=== PATIENT | male | born 1935 | race Caucasian/White ===

== ENCOUNTER 2018-08-16 17:12 | Observation (INO) | payer MEDICARE ==
[~2018-08-16] VITALS: Ht 177.8 cm; Wt 100.0 kg
[~2018-08-16 17:12] MED LIST: CELEXA20 MG PO; CEPHALEXIN500 MG PO; COUMADIN10 MG PO; EPLERENONE25 MG PO; LORTAB 5-325 MG1 TAB PO; LORTAB 5/3255 MG PO; LOSARTAN POT50 MG PO; LOVENOX SC; NEXIUM40 MG PO; TRAMADOL HCL50 MG PO; ZOFRAN ODT4 MG PO
--- NOTE | 2018-08-16 17:14 | NUR ---
TO ROOM 6 WITH STEADY GAIT
--- NOTE | 2018-08-16 17:30 | NUR ---
TO CT SCAN AND RETURN FOR STAT HEAD CT
--- NOTE | 2018-08-16 17:36 | NUR ---
PT ALERT/ORIENTED, STATES HEADACHE STARTED OUT SMALL AND THEN OVER A COUPLE OF HOURS BECAME SEVERE. [facility] A 0
--- NOTE | 2018-08-16 17:37 | NUR ---
ER INFORMED OF [facility]
[2018-08-16 17:45] LABS: HEMATOCRIT 44.2 % (39.0-50.0); HEMOGLOBIN 15.2 g/dl (14.0-18.0); IMMATURE GRANULOCYTES 0.4 % (0.0-5.0); MEAN CELL VOLUME 92.9 fL CALC (80.0-100.0); MEAN CORPUSCULAR HGB 31.9 pG CALC (26.0-32.0); MEAN CORPUSCULAR HGB CONC 34.4 g/L CALC (32.0-36.0); NEUT# 11.95 thou/uL (1.82-7.42); RED BLOOD COUNT 4.76 mill/uL (4.70-6.10); RED CELL DISTRI WIDTH 13.1 % (11.5-15.5)
[2018-08-16 17:55] LABS: INTERNATIONAL NORMALIZED RATIO 1.1 RATIO (0.7-1.3); PROTHROMBIN TIME 11.4 SECONDS (9.0-12.5)
[2018-08-16 17:57] LABS: ALBUMIN 4.3 g/dL (3.2-5.0); ALKALINE PHOSPHATASE 87 u/l (38-126); ANION GAP 15 (6-22 (CALC)); BILIRUBIN, TOTAL 0.9 mg/dL (0.0-1.4); BUN 16 mg/dL (8-23); BUN/CREATININE RATIO 14 (12-20 (CALC)); CARBON DIOXIDE 22 mmol/l (22-30); CHLORIDE 105 mmol/l (95-108); CREATININE 1.1 mg/dL (0.7-1.3); GFR > 60 ML/MIN (>=60 (CALC)); GFR FOR AFR.AMER. > 60 ML/MIN (>=60 (CALC)); SGOT/AST 20 u/l (19-48); SODIUM 138 mmol/l (137-146); TOTAL PROTEIN 6.9 g/dL (6.3-8.2)
--- NOTE | 2018-08-16 18:07 | NUR ---
VITAL SIGNS STABLE AT THIS TIME, B/P DOWN TO 146/89
[2018-08-16] MEDS ORDERED: ELIQUIS2.5 MG PO (18:12)
[2018-08-16] MEDS ORDERED: TRAZODONE50 MG PO (18:13)
--- NOTE | 2018-08-16 19:20 | NUR ---
PT REMAINS STABLE, HEADACHE IS DOWN TO A 4, LAUGHING AND JOKING WITH STAFF AT THIS TIME
--- NOTE | 2018-08-16 19:45 | NUR ---
WHEN I ASKED PT WHERE HIS PAIN WAS AT NOW HE KEPT PUSHING AT HIS LEFT SIDE JAW LINE ON ARTERY AND SAID THAT PAIN WENT UP INTO HEAD ALSO
--- NOTE | 2018-08-16 19:54 | NUR ---
PT DOWN TO CT SCAN FOR CAROTIDS
--- NOTE | 2018-08-16 21:19 | NUR ---
PT CALLED STAFF BACK INTO ROOM, STATES HEADACHE IS COMING BACK AROUND RIGHT [place] EAR AREA. BLOOD PRESSURE HAS GONE UP AGIAN, 200/102. [address] AND DR[address] RIVERA IS IN SPEAKING WITH PT AT THIS TIME
[2018-08-16 21:38] LABS: URINE BILIRUBIN - DIPSTICK NEGATIVE (NEGATIVE); URINE BLOOD DIPSTICK TRACE-LYSED (NEGATIVE); URINE COLOR YELLOW; URINE GLUCOSE - DIPSTICK NEGATIVE (NEGATIVE); URINE KETONE 15 mg/dL (NEGATIVE); URINE NITRITE - DIPSTICK NEGATIVE (Negative); URINE PROTEIN - DIPSTICK TRACE mg/dL (NEG-TRACE); URINE UROBILINOGEN - DIPSTICK 0.2 E.U./dL (0.2)
--- NOTE | 2018-08-16 21:39 | NUR ---
PER DR. RIVERA GAVE 10 MG HYDRALAZINE AND IF BLOOD PRESSURE DOESNT COME DOWN TO GIVE THE OTHER 10 MG.
[2018-08-16 21:51] LABS: URINE LEUK ESTERASE SMALL (NEGATIVE)
[2018-08-16 21:52] LABS: URINE BACTERIA FEW hpf; URINE WBC 20-50 WBC/hpf (0-5)
--- NOTE | 2018-08-16 22:05 | NUR ---
TOOK OVER CARE OF PT FROM SALIMA HERNANDEZ.
--- NOTE | 2018-08-16 22:22 | NUR ---
PT TO BE ADMITTED.
--- NOTE | 2018-08-16 22:40 | NUR ---
MEDICATED WITH NORVASC AND ROCEPHIN, NOTICED B/Y EYES RED AND PUS NOTED TO LEFT EYE-DR RIVERA INFORMED.
--- NOTE | 2018-08-16 23:27 | NUR ---
REPORT GIVEN TO SALIMA SELF.
--- NOTE | 2018-08-16 23:35 | NUR ---
MEDICATED PT WITH TORADOL FOR PAIN PRIOR TO TRANSPORTING TO FLOOR. UP DATED REPORT GIVEN TO SALIMA SELF. REMINED DR RIVERA ABOUT CONJUNTIVITIS AND MEDICATION ORDER PLACED. Admission Note Report Given to: SALIMA SELF Transported by: X Wheelchair Stretcher Transported with: X Nurse Transporter X Patent IV O2 X Chief Fundraising Officer
[2018-08-16 23:45] VITALS: BP 143/77
--- NOTE | 2018-08-16 23:50 | NUR ---
pt arrived to unit at 2343 via wneelchair accompanied with . pt alert oriented. perrla. denies pain at the monemt. lungs clear. pulses strong and present. hand grasps equal and strong. abdomen firm and distended. last bm 08/16/18 in morning. iv in left AC. patent with no sign of infection.pt denies recent fall. skin assessment complete. min bruises noted to right shoulder.no open area. pt wears glasses and a hearing aid in righ tear. poc discussed. pt voiced understanding.call light in reach. bed in lowest position. pt educated to call for assistance when needing to go to restroom. Gentamycin intiated for conjunctivis. no other concerns at this time will monitor.
[2018-08-17 04:00] VITALS: BP 138/83
--- NOTE | 2018-08-17 04:00 | NUR ---
PT RESTING IN BED WITH EYES OPEM. NO C/O PAIN. PT CONCERNED ABOUT PRESCRIBED EYE OINTMENT. CHARGE NURSE MADE AWARE THAT MED NOT IN PIXIS. EXPLAINED TO PT THAT IF MED ISNT AVALIBLE. WE WILL HAVE TO WAIT UNTIL PHARMACY OPEND IN THE MORNING. PT VOICED UNDERSTANDING. EDUCATED PT NOT TO RUBB EYES TO PREVENT FROM SPREADING INFECTION. PT VOICED UNDERSTAND. BED IN LOWEST POSITION AND CALL LIGHT WITHIN REACH. WILL CONTINUE TO MONITOR.
--- NOTE | 2018-08-17 04:51 | NUR ---
ADMINISTERED GENTAMYCIN BILAT TO EYES. IV PATENT. NO PAIN. NO S/S OF DISTRESS. BED IN LOWEST POSITON. WILL MONITOR.
--- NOTE | 2018-08-17 07:17 | NUR ---
REPORT RECEIVED FROM NIGHT NURSE; PT APPEARS TO BE SLEEPING, RESP EVEN AND UNLABORED; CALL KRAUS IN REACH.
[2018-08-17 08:06] VITALS: BP 138/76
--- NOTE | 2018-08-17 08:16 | NUR ---
ASSESSMENT COMPLETED; SITTING UP IN BED WATCHING TV; A/O X3; AM MEDS ADMINISTERED; PULSES STRONG; ABD FIRM DISTENDED; SKIN INTACT; TELE IN PLACE; IV PATENT; HEARING AID IN R EAR; AT BEDSIDE; CALL KRAUS IN REACH.
[2018-08-17 11:00] VITALS: BP 157/94
--- NOTE | 2018-08-17 12:00 | NUR ---
PT SITTING UP IN BED WATCHING TV AND EATING LUNCH; RESP EVEN AND UNLABORED; WANTING TO KNOW WHEN HE WILL BE D/C.
[2018-08-17 14:33] LABS: HEMATOCRIT 45.5 % (39.0-50.0); HEMOGLOBIN 15.4 g/dl (14.0-18.0); IMMATURE GRANULOCYTES 0.6 % (0.0-5.0); MEAN CELL VOLUME 94.2 fL CALC (80.0-100.0); MEAN CORPUSCULAR HGB 31.9 pG CALC (26.0-32.0); MEAN CORPUSCULAR HGB CONC 33.8 g/L CALC (32.0-36.0); NEUT# 10.11 thou/uL (1.82-7.42); RED BLOOD COUNT 4.83 mill/uL (4.70-6.10); RED CELL DISTRI WIDTH 13.2 % (11.5-15.5)
[2018-08-17] MEDS ORDERED: Levaquin PO (15:12)
--- NOTE | 2018-08-17 16:10 | NUR ---
DC INSTRUCTIONS GIVEN TO PT ALONG WITH EYE DROP; PT VERBALIZED UNDERSTANDING; IVS REMOVED, CATH TIP INTAC; TELE REMOVED; PT INSTRUCTED TO CALL WHEN HIS RIDE GETS HERE;
--- NOTE | 2018-08-17 16:40 | NUR ---
Discharge instructions given. Patient verbalizes understanding of same. Discharged in stable condition via Wheelchair to Home with spouse. All belongings sent with pt.
== END 2018-08-17 16:40 | disposition home or self-care (01) ==
LOC: ED 17:12 → ED-I 22:19 → ED 22:24 → MS2 22:25
PROVIDERS: Emergency Medicine; Internal Medicine Nephrology; ADMIT Internal Medicine; ATTEND Internal Medicine
DX: I10 Essential (primary) hypertension (principal); D72.829 Elevated white blood cell count, unspecified; R05 Cough; K21.9 Gastro-esophageal reflux disease without esophagitis; N40.0 Benign prostatic hyperplasia without lower urinary tract symptoms; F41.9 Anxiety disorder, unspecified; M47.9 Spondylosis, unspecified; Z79.01 Long term (current) use of anticoagulants; Z86.711 Personal history of pulmonary embolism; R51 Headache; H92.02 Otalgia, left ear
CPT/HCPCS: G0378; Q9967

== ENCOUNTER 2021-08-23 11:08 | Emergency (ER) | payer MEDICARE ==
[~2021-08-23] VITALS: Ht 165.1 cm; Wt 90.9 kg
[~2021-08-23 11:08] MED LIST changes: +ELIQUIS2.5 MG PO; +Levaquin PO; +TRAZODONE50 MG PO
[2021-08-23] MEDS ORDERED: ATORVASTATIN CA40 MG PO (12:09)
[2021-08-23] MEDS ORDERED: NEXIUM40 M1 PO (12:10)
[2021-08-23] MEDS ORDERED: LISINOPRIL5 MG PO (12:10)
[2021-08-23] MEDS ORDERED: LIPO-FLAVONOID PO (12:12)
[2021-08-23] MEDS ORDERED: VITAMIN C500 M6 PO (12:12)
[2021-08-23] MEDS ORDERED: CLOPIDOGREL75 MG PO (12:13)
[2021-08-23] MEDS ORDERED: REMERON15 MG PO (12:13)
[2021-08-23 12:14] LABS: HEMATOCRIT 45.6 % (39.0-50.0); HEMOGLOBIN 14.3 g/dl (14.0-18.0); IMMATURE GRANULOCYTES 0.5 % (0.0-5.0); MEAN CELL VOLUME 91.2 fL CALC (80.0-100.0); MEAN CORPUSCULAR HGB 28.6 pG CALC (26.0-32.0); MEAN CORPUSCULAR HGB CONC 31.4 g/dL CAL (32.0-36.0); NEUT# 4.65 thou/uL (1.82-7.42)
[2021-08-23 12:16] LABS: URINE BLOOD DIPSTICK LARGE (NEGATIVE); URINE COLOR BROWN; URINE GLUCOSE - DIPSTICK 100 mg/dL (NEGATIVE); URINE KETONE 15 mg/dL (NEGATIVE); URINE PROTEIN - DIPSTICK >=300 mg/dL (NEG-TRACE)
[2021-08-23 12:18] LABS: URINE BILIRUBIN - DIPSTICK NEGATIVE (NEGATIVE); URINE LEUK ESTERASE MODERATE (NEGATIVE); URINE NITRITE - DIPSTICK POSITIVE (Negative)
[2021-08-23 12:20] LABS: URINE RBC TNTC RBC/hpf (0-5)
[2021-08-23 12:35] LABS: ALBUMIN 4.4 g/dL (3.2-5.0); ALKALINE PHOSPHATASE 136 u/l (38-126); ANION GAP 14 (6-22 (CALC)); BILIRUBIN, TOTAL 0.5 mg/dL (0.0-1.4); BUN 20 mg/dL (8-23); BUN/CREATININE RATIO 18 (12-20 (CALC)); CARBON DIOXIDE 26 mmol/l (22-30); CHLORIDE 105 mmol/l (95-108); CREATININE 1.1 mg/dL (0.7-1.3); GFR > 60 ML/MIN (>=60 (CALC)); GFR FOR AFR.AMER. > 60 ML/MIN (>=60 (CALC)); POTASSIUM 4.6 mmol/l (3.5-5.1); SGOT/AST 25 u/l (19-48); SODIUM 140 mmol/l (137-146); TOTAL PROTEIN 7.4 g/dL (6.3-8.2)
[2021-08-23 12:39] LABS: ACT PARTIAL THROMBO TIME 25.2 SECONDS (20.0-32.5); PROTHROMBIN TIME 10.8 SECONDS (9.0-12.5)
[2021-08-23] MEDS ORDERED: KEFLEX500 MG PO (13:11)
[2021-08-23] MEDS ORDERED: TAMSULOSIN0.4 MG PO (13:11)
[2021-08-23] MEDS ORDERED: ZOFRAN4 MG/TAB PO (13:11)
[2021-08-23] MEDS ORDERED: HYDROCO/APAP1 TA9 PO (13:11)
[2021-08-23 13:55] VITALS: BP 138/85
== END 2021-08-23 14:00 | disposition home or self-care (01) ==
LOC: ED 11:08
DX: N20.1 Calculus of ureter (principal); N39.0 Urinary tract infection, site not specified; I11.0 Hypertensive heart disease with heart failure; I50.9 Heart failure, unspecified; F17.220 Nicotine dependence, chewing tobacco, uncomplicated; Z95.0 Presence of cardiac pacemaker; Z95.2 Presence of prosthetic heart valve

== ENCOUNTER 2021-09-27 12:50 | Observation (INO) | payer MEDICARE ==
[~2021-09-27] VITALS: Ht 165.1 cm; Wt 86.7 kg
[2021-09-27] VITALS (25 sets, daily range): BP systolic 69–134; BP diastolic 49–84
[~2021-09-27 12:50] MED LIST changes: +ATORVASTATIN CA40 MG PO; +CLOPIDOGREL75 MG PO; +HYDROCO/APAP1 TA9 PO; +KEFLEX500 MG PO; +LIPO-FLAVONOID PO; +LISINOPRIL5 MG PO; +NEXIUM40 M1 PO; +REMERON15 MG PO; +TAMSULOSIN0.4 MG PO; +VITAMIN C500 M6 PO; +ZOFRAN4 MG/TAB PO
--- NOTE | 2021-09-27 12:53 | NUR ---
PATIENT TO ROOM VIA WHEELCHIAR.
[2021-09-27 13:52] LABS: HEMATOCRIT 42.2 % (39.0-50.0); HEMOGLOBIN 13.2 g/dl (14.0-18.0); IMMATURE GRANULOCYTES 0.7 % (0.0-5.0); MEAN CELL VOLUME 90.6 fL CALC (80.0-100.0); MEAN CORPUSCULAR HGB 28.3 pG CALC (26.0-32.0); MEAN CORPUSCULAR HGB CONC 31.3 g/dL CAL (32.0-36.0); NEUT# 6.76 thou/uL (1.82-7.42); RED BLOOD COUNT 4.66 mill/uL (4.70-6.10); RED CELL DISTRI WIDTH 14.3 % (11.5-15.5)
[2021-09-27 14:10] LABS: URINE BILIRUBIN - DIPSTICK NEGATIVE (NEGATIVE); URINE BLOOD DIPSTICK LARGE (NEGATIVE); URINE GLUCOSE - DIPSTICK NEGATIVE (NEGATIVE); URINE KETONE NEGATIVE (NEGATIVE); URINE LEUK ESTERASE NEGATIVE (NEGATIVE); URINE PROTEIN - DIPSTICK >=300 mg/dL (NEG-TRACE); URINE SPECIFIC GRAVITY 1.025; URINE UROBILINOGEN - DIPSTICK 0.2 E.U./dL (0.2)
[2021-09-27 14:11] LABS: URINE COLOR RED; URINE NITRITE - DIPSTICK NEGATIVE (Negative)
[2021-09-27 14:13] LABS: ACT PARTIAL THROMBO TIME 24.7 SECONDS (20.0-32.5); PROTHROMBIN TIME 10.8 SECONDS (9.0-12.5)
[2021-09-27 14:13] LABS: URINE RBC TNTC RBC/hpf (0-5)
[2021-09-27 14:15] LABS: ALKALINE PHOSPHATASE 128 u/l (38-126); ANION GAP 13 (6-22 (CALC)); BILIRUBIN, TOTAL 0.6 mg/dL (0.0-1.4); BUN 24 mg/dL (8-23); BUN/CREATININE RATIO 21 (12-20 (CALC)); CARBON DIOXIDE 21 mmol/l (22-30); CHLORIDE 110 mmol/l (95-108); CREATININE 1.1 mg/dL (0.7-1.3); GFR > 60 ML/MIN (>=60 (CALC)); GFR FOR AFR.AMER. > 60 ML/MIN (>=60 (CALC)); POTASSIUM 4.4 mmol/l (3.5-5.1); SGOT/AST 26 u/l (19-48); SODIUM 139 mmol/l (137-146); TOTAL PROTEIN 7.2 g/dL (6.3-8.2)
[2021-09-27] MEDS ORDERED: TAMSULOSIN0.4 MG PO (15:01)
[2021-09-27] MEDS ORDERED: CENTRUM SILVER PO (15:02)
[2021-09-27] MEDS ORDERED: ASPIRIN81 MG PO (15:03)
[2021-09-27] MEDS ORDERED: METOPROL TAR25 M1 PO (15:03)
--- NOTE | 2021-09-27 15:04 | NUR ---
3,000 URINE, BLOODY, OUTPUT THROUGH SHEARER.
--- NOTE | 2021-09-27 16:17 | NUR ---
3000 NS CBI INTAKE 5000 CBI OUT
[2021-09-27 16:29] LABS: HEMOGLOBIN 13.2 g/dl (14.0-18.0); IMMATURE GRANULOCYTES 0.3 % (0.0-5.0); MEAN CELL VOLUME 91.7 fL CALC (80.0-100.0); MEAN CORPUSCULAR HGB 28.8 pG CALC (26.0-32.0); MEAN CORPUSCULAR HGB CONC 31.4 g/dL CAL (32.0-36.0); NEUT# 6.68 thou/uL (1.82-7.42); RED BLOOD COUNT 4.58 mill/uL (4.70-6.10); RED CELL DISTRI WIDTH 14.3 % (11.5-15.5)
--- NOTE | 2021-09-27 17:07 | NUR ---
REPORT CALLED TO KAE
--- NOTE | 2021-09-27 18:15 | NUR ---
REPORT RECEIVED FROM BOBBY IN ED, PT ARRIVED ON UNIT @ 1744 TRANSPORTED VIA STRETCHER AND SETTLED IN BED. ALERT AND ORIENTED X 4, ORIENTED TO ROOM AND CALL KRAUS, DENIES PAIN BUT C/O PRESSURE TO LOWER ABD, CBI IN PROGRESS AT THIS TIME WITH BRIGHT RED BLOODY DRAINAGE, VITAL SIGNS MEASURED AND RECORDED, WILL CONTINUE TO MONITOR.
--- NOTE | 2021-09-27 19:00 | NUR ---
PT C/O SHARP INTERMITTENT PAIN TO PENILE AREA, ORDERS NOT YET COMPLETED FOR ANALGESIC, WILL CONTINUE TO MONITOR. ON ARRIVAL TO UNIT CBI DRAINING BRIGHT RED BLOOD, CLAMPS OPENED WIDE UNTIL FLOW BECAME EDWARD RED TO LIGHT EDWARD, NIGHT RN WILL CONTINUE ASSESSMENT.
--- NOTE | 2021-09-27 22:00 | NUR ---
RESTING IN BED. A/O X 4 [place]. RESPIRATIONS EVEN AND UNLABORED, LUNGS CLEAR. BS ACTIVE BELLY SOFT AND ROUND. NO BLE NAE ANOTED. SHEARER DRAINING EDWARD COLOR URINE AND NS TO GRAVITY CBI RUNNING AT FULL OPEN RATE. MEDICATED FOR PAIN PER AUG. PIV X 2 WDL. BED LOW AND LOCKED CALL KRAUS IN REACH SIDE RAILS UP.
--- NOTE | 2021-09-27 22:00 | NUR ---
CLOTS NOTED IN SHEARER TUBING, MANUAL IRRIGATION PER ORDER PROFUSE CLOTS REMOVED, UNABLE TO GET URINE TO RUN CLEAR. CBI INFUSING AT MAX RATE COLOR IS STILL EDWARD
[2021-09-28] VITALS (7 sets, daily range): BP systolic 90–138; BP diastolic 54–69
--- NOTE | 2021-09-28 00:12 | NUR ---
RESTING IN BED. SYSTOLIC BP IN THE LOW 90S PT ASYMTOMATIC. CBI RUNNING URINE EDWARD COLOR OCCASIONAL CLOT NOTED. NO C/O PAIN AT THIS TIME.
--- NOTE | 2021-09-28 01:21 | NUR ---
pt c/o pain clots noted in beavers tubing. rrigated by hand per order drainage noted to be grossly bloody with abundance of clots
--- NOTE | 2021-09-28 02:46 | NUR ---
MANUAL IRRIGATION OF SHEARER PERFORMED PER ORDER LESS CLOTTING NOTED THIS TIME
--- NOTE | 2021-09-28 03:39 | NUR ---
VSS OVERNIGHT. URINE CONTINUES TO BE BLOODY. CBI INFUSING. MEDICATED FOR PAIN PER MAR.
[2021-09-28 04:58] LABS: MEAN CELL VOLUME 91.8 fL CALC (80.0-100.0); MEAN CORPUSCULAR HGB 28.8 pG CALC (26.0-32.0); MEAN CORPUSCULAR HGB CONC 31.4 g/dL CAL (32.0-36.0); RED BLOOD COUNT 3.68 mill/uL (4.70-6.10); RED CELL DISTRI WIDTH 14.1 % (11.5-15.5)
[2021-09-28 05:03] LABS: HEMATOCRIT 33.8 % (39.0-50.0); HEMOGLOBIN 10.6 g/dl (14.0-18.0)
[2021-09-28 05:23] LABS: ANION GAP 10 (6-22 (CALC)); BUN 28 mg/dL (8-23); BUN/CREATININE RATIO 22 (12-20 (CALC)); CARBON DIOXIDE 24 mmol/l (22-30); CHLORIDE 110 mmol/l (95-108); CREATININE 1.3 mg/dL (0.7-1.3); GFR 53 ML/MIN (>=60 (CALC)); GFR FOR AFR.AMER. > 60 ML/MIN (>=60 (CALC)); MAGNESIUM 1.8 mg/dL (1.6-2.3); POTASSIUM 4.3 mmol/l (3.5-5.1); SODIUM 139 mmol/l (137-146)
--- NOTE | 2021-09-28 07:10 | NUR ---
SHIFT CHANGE REPORT, PT SLEEPING AT THIS TIME, BREATHING EVEN AND NON-LABORED, TELE MOITOR IN PLACE, CBI INPROGRESS WITH EDWARD RED OUTPUT IN BAG BUT LIGHT PINK IN CATHETER, WILL CONTINUE TO MONITOR.
--- NOTE | 2021-09-28 10:29 | NUR ---
DR VELASQUEZ ROUNDED, DISCUSSED PLAN OR CARE, PT ABLE TO ANSWER ALL/MOST OF THE QUESTIONS ASKED ABOUT SURGICAL HISTORY, PLAN IS TO CONTINUE CBI AND MANUALLY IRRIGATE FOR CLOTS PRN THEN IF CONDITION REMAINS STABLE WITH H&H AND DECREASE BLEEDING PT WILL BE D/C TO FOLLOW UP WITH DR GUERIN, PT STATED UNDERSTANDING OF ALL THAT WAS DISCUSSED, WILL CONTINUE TO MONITOR.
--- NOTE | 2021-09-28 12:11 | NUR ---
ALL NEEDS ADDRESSED, SPOUSE IN ROOM AT THIS TIME. PT REFUSES OUR MEAL HERE STATING HE DOES NOT EAT ANY POULTRY PRODUCTS, DIETARY WILL BE CONTACTED TO ADDRESS CONCERNS
--- NOTE | 2021-09-28 15:11 | NUR ---
NO C/O PAIN TODAY, CBI IN PROGRESS AND OUTPUT GETTING CLEARER, NO VISIBLE CLOTS SEEN SO FAR TODAY, FREQUENT MONITORING CONTINUES.
--- NOTE | 2021-09-28 18:40 | NUR ---
PT C/O SEVERE PELVIC/GROIN PAIN, ON ASSESSMENT OF CBI CATHETER THERE WAS FREE LIGHT PINK FLOW, PT REQUESTED TO BE IRRIGATED, MULTIPLE CLOTS OF VARYING SIZES WERE EXTRACTED THEN DISCOMFORT WAS TOTALLY RELIEVED, NIGHT NURSE INFORMED OF EVENT AND WILL FOLLOW UP.
--- NOTE | 2021-09-28 19:45 | NUR ---
RESTING IN BED. VSS. A/O VERY SLEEPY TODAY STATES HAS NOT SLEPT TODDAY AND DID NOT SLEEP LAST NIGHT. RESPIRATIONS EVEN AND UNLABORED LUNGS CLEAR. BS ACTIVE, BELLY DISTENDED BUT SOFT. SHEARER DRAINING PINK URINE TO GRAVITY. CBI INFUSING. NO BLE NAE ANOTED. PIV WDL BED LOW AND LOCKED CALL KRAUS IN REACH
--- NOTE | 2021-09-29 00:34 | NUR ---
RESTING IN BED VSS. URINE LIGHT PINK
[2021-09-29 03:57] VITALS: BP 110/57
--- NOTE | 2021-09-29 04:39 | NUR ---
NO ACUTE EVENTS OVERNIGHT. URINE CONTINUES TO RUN VERY LIGHT PINK CBI INFUSING AT SLOW DRIP
[2021-09-29 05:49] LABS: HEMATOCRIT 33.2 % (39.0-50.0); HEMOGLOBIN 10.3 g/dl (14.0-18.0); MEAN CELL VOLUME 92.5 fL CALC (80.0-100.0); MEAN CORPUSCULAR HGB 28.7 pG CALC (26.0-32.0); RED BLOOD COUNT 3.59 mill/uL (4.70-6.10); RED CELL DISTRI WIDTH 14.4 % (11.5-15.5)
[2021-09-29 06:05] LABS: ANION GAP 8 (6-22 (CALC)); BUN 23 mg/dL (8-23); BUN/CREATININE RATIO 22 (12-20 (CALC)); CARBON DIOXIDE 27 mmol/l (22-30); CHLORIDE 108 mmol/l (95-108); CREATININE 1.1 mg/dL (0.7-1.3); GFR > 60 ML/MIN (>=60 (CALC)); GFR FOR AFR.AMER. > 60 ML/MIN (>=60 (CALC)); MAGNESIUM 1.6 mg/dL (1.6-2.3); POTASSIUM 4.5 mmol/l (3.5-5.1); SODIUM 139 mmol/l (137-146)
--- NOTE | 2021-09-29 07:11 | NUR ---
SHIFT CHANGE REPORT, PT SLEEPING AT THIS TIME, NO SIGN DISCOMFORT, TELE MONITOR IN PLACE, CBI IN PROGRESS WITH LIGHT PINK DRAINAGE, CALL KRAUS IN REACH AND BED LOCKED IN LOWEST POSITION
[2021-09-29 07:30] VITALS: BP 140/61
--- NOTE | 2021-09-29 07:34 | NUR ---
AWAKE AND ALERT AT THIS TIME, DENIES PAIN, NEEDS ADDRESSED.
[2021-09-29 10:18] VITALS: BP 128/71
--- NOTE | 2021-09-29 11:43 | NUR ---
PT AMBULATED TO BR THEN BACK TO BED, C/O SEVERE SHARP PAINS TO PUBIC AREA, CATHETER MANUALLY IRRIGATED AND CLOTS OF MULTIPLE SIZES WERE EVACUATED, PT THEN REPORTED COMPLETE RELIEF FROM HIS EXCRUATING PAIN AND DID NOT WANT TO HAVE ANY ANALGESICS HE HAD PREVIOUSLY REQUESTED DURING HIS PAINFUL EPISODE; WILL CONTINUE TO MONITOR.
--- NOTE | 2021-09-29 15:37 | NUR ---
PT AMBULATED TO BR AGAIN FOR SECOND TIME TODAY, C/O EXCRUCIATING PELVIC PAIN AGAIN, BLADDER MANUALLY IRRIGATED AND MANY CLOTS EVACUATED, PAIN RELIEVED, WILL CONTINUE TO MONITOR.
[2021-09-29 15:53] VITALS: BP 124/66
--- NOTE | 2021-09-29 19:00 | NUR ---
REPORT GIVEN BY EDGAR. PATIENT RESTING IN BED WATCHING TV. RESP EVEN AND UNLABORED. NO S/S OF DISTRESS NOTED. FALL AND SAFTEY PRECAUTIONS IN PLACE. IV SLAINE LOCKED. CBI CURRENTLY RUNNING AND DRAINING TO GRAVITY. PLAN OF CARE DISCUSSED. PATIENT INFORMED TO CALL WITH ANY QUESTIONS OR CONCERNS. PACED ON TELE.
[2021-09-29 19:07] VITALS: BP 129/60
[2021-09-29 23:41] VITALS: BP 127/70
[2021-09-30] VITALS (12 sets, daily range): BP systolic 103–151; BP diastolic 57–75
--- NOTE | 2021-09-30 00:45 | NUR ---
CBI RUNNING WITH PEACH COLORED DRAINAGE AND NO CLOTS PRESENT. FALL AND SAFTEY PRECAUTIONS IN PLACE. NO S/S OF DISTRESS NOTED.
--- NOTE | 2021-09-30 04:43 | NUR ---
PATIENT RESTING WITH EYES CLOSED. FALL AND SAFTEY PRECAUTIONS
[2021-09-30 05:45] LABS: HEMATOCRIT 34.1 % (39.0-50.0); HEMOGLOBIN 11.2 g/dl (14.0-18.0); MEAN CELL VOLUME 91.2 fL CALC (80.0-100.0); MEAN CORPUSCULAR HGB 29.9 pG CALC (26.0-32.0); MEAN CORPUSCULAR HGB CONC 32.8 g/dL CAL (32.0-36.0); RED BLOOD COUNT 3.74 mill/uL (4.70-6.10); RED CELL DISTRI WIDTH 14.2 % (11.5-15.5)
[2021-09-30 06:20] LABS: ANION GAP 10 (6-22 (CALC)); BUN 19 mg/dL (8-23); BUN/CREATININE RATIO 18 (12-20 (CALC)); CARBON DIOXIDE 24 mmol/l (22-30); CHLORIDE 106 mmol/l (95-108); GFR > 60 ML/MIN (>=60 (CALC)); GFR FOR AFR.AMER. > 60 ML/MIN (>=60 (CALC)); POTASSIUM 4.6 mmol/l (3.5-5.1); SODIUM 136 mmol/l (137-146)
--- NOTE | 2021-09-30 07:51 | NUR ---
PT ANXIOUS ABOUT PROCEDURE. OR CONTACTED. STATES NO OPAIN AT THIS TIME. IV 22G RH FLUSHED, 20G LW FLUSHED. TELE MONITOR IN PLACE, CONTINOUS MONITORING PER ED. CBI IN PLACE SHOWING PALE YELLOW URINE. PT HAS BEEN NPO SINCE MIDNIGHT. ASSESSMENT ALLOWED FALL/SAFTEY PRECAUTION IN PLACE. CALL LIGHT WITHIN REACH.
--- NOTE | 2021-09-30 11:56 | NUR ---
PT RESTING IN BED. SHEARER CBI DRAINING VIA GRAVITY. PT STATES NO PAIN. TELE MONITOR IN PLACE, CONTINOUS MONIOTIRNG PER ED. IVS PATENT. FALL/SAFETY PRECAUTION IN PLACE. CALL LIGHT WITHIN REACH.
--- NOTE | 2021-09-30 16:41 | NUR ---
PT TRANSPORTED TO OR WITH SALIMA COY AND RN VIA STRETCHER WITH CBI BAGS DRAINING VIA GRAVITY.
--- NOTE | 2021-09-30 18:00 | NUR ---
PT IN OR AT THIS TIME
--- NOTE | 2021-09-30 18:38 | NUR ---
PT ARRIVED VIA STRETCHER FROM OR
--- NOTE | 2021-09-30 19:30 | NUR ---
REPORT GIVEN BY NASH. PATIENT RESTING IN BED WATCHING TV WITH PRESENT. RESP EVEN AND UNLABORED. NO S/S OF DISTRESS NOTED. FALL AND SAFTEY PRECAUTIONS IN PLACE. IV SALINE LOCKED. PACED ON TELE. PLAN OF CARE DISCUSSED. PATIENT INFORMED TO CALL WITH ANY QUESTIONS OR CONCERNS. SHEARER DRAINING TO GRAVITY, CLEAR PALE YELLOW URINE.
--- NOTE | 2021-10-01 01:25 | NUR ---
patient has c/o of constipation. medicated per md orders
[2021-10-01 03:33] VITALS: BP 123/64
[2021-10-01 05:52] LABS: HEMATOCRIT 33.6 % (39.0-50.0); HEMOGLOBIN 10.7 g/dl (14.0-18.0); MEAN CELL VOLUME 90.6 fL CALC (80.0-100.0); MEAN CORPUSCULAR HGB 28.8 pG CALC (26.0-32.0); MEAN CORPUSCULAR HGB CONC 31.8 g/dL CAL (32.0-36.0); RED BLOOD COUNT 3.71 mill/uL (4.70-6.10); RED CELL DISTRI WIDTH 14.3 % (11.5-15.5)
[2021-10-01 06:17] LABS: ANION GAP 10 (6-22 (CALC)); BUN 19 mg/dL (8-23); BUN/CREATININE RATIO 17 (12-20 (CALC)); CARBON DIOXIDE 25 mmol/l (22-30); CHLORIDE 108 mmol/l (95-108); CREATININE 1.1 mg/dL (0.7-1.3); GFR > 60 ML/MIN (>=60 (CALC)); GFR FOR AFR.AMER. > 60 ML/MIN (>=60 (CALC)); POTASSIUM 4.4 mmol/l (3.5-5.1); SODIUM 139 mmol/l (137-146)
[2021-10-01] MEDS ORDERED: FINASTERIDE5 MG PO (08:25)
[2021-10-01] MEDS ORDERED: HYDROCO/APAP1 TA9 PO (08:26)
--- NOTE | 2021-10-01 09:06 | NUR ---
PT SITTNG ON SIDE OF BED UPON ENTERING ROOM. STATES PAIN IN GROIN AREA. PAIN MEDICATION GIVEN SEE EMAR. ASSESSMENT ALLOWED. SHEARER DRAINING URINE VIA GRAVITY. SHOWING CLEAR/ YELLOW URINE. IV SL FLUSHED. FALL/SAFTEY PRECAUTION IN PLACE. CALL LIGHT WITHIN REACH
[2021-10-01 10:57] VITALS: BP 126/60
--- NOTE | 2021-10-01 11:25 | NUR ---
Discharge instructions given. Patient verbalizes understanding of same. Discharged in stable condition via Wheelchair to Home with family AND VICK . All belongings sent with pt. TELE MONITOR REMOVED
== END 2021-10-01 11:25 | disposition home or self-care (01) ==
LOC: ED 12:50 → ED-I 14:30 → ED 14:55 → MS2 14:56
PROVIDERS: Internal Medicine; ADMIT Hospitalist; ATTEND Hospitalist
PROC: 0T9B70Z Drainage of Bladder with Drainage Device, Via Natural or Artificial Opening (ICD-10-PCS; principal; 2021-09-27)
PROC: 0TJB8ZZ Inspection of Bladder, Via Natural or Artificial Opening Endoscopic (ICD-10-PCS; 2021-09-30)
DX: N40.1 Benign prostatic hyperplasia with lower urinary tract symptoms (principal); R39.12 Poor urinary stream; R35.1 Nocturia; I13.0 Hypertensive heart and chronic kidney disease with heart failure and stage 1 through stage 4 chronic kidney disease, or unspecified chronic kidney disease; I50.9 Heart failure, unspecified; N18.9 Chronic kidney disease, unspecified; I25.10 Atherosclerotic heart disease of native coronary artery without angina pectoris; N20.0 Calculus of kidney; E78.5 Hyperlipidemia, unspecified; I73.9 Peripheral vascular disease, unspecified; F17.220 Nicotine dependence, chewing tobacco, uncomplicated; Z95.820 Peripheral vascular angioplasty status with implants and grafts; Z79.82 Long term (current) use of aspirin; Z95.2 Presence of prosthetic heart valve; Z95.0 Presence of cardiac pacemaker; Z86.711 Personal history of pulmonary embolism; Z87.440 Personal history of urinary (tract) infections; Z87.442 Personal history of urinary calculi; Z79.02 Long term (current) use of antithrombotics/antiplatelets; Z20.822 Contact with and (suspected) exposure to COVID-19
CPT/HCPCS: J1650; J1956; J3490